=== PATIENT | female | born 1970 | race Hispanic/Latino ===

== ENCOUNTER 2017-08-17 17:44 | Emergency (ER) | payer BC ==
[2017-08-17 18:41] LABS: Bilirubin Negative (Negative); Blood, Urine Large (Negative); Clarity CLOUDY (Clear); Glucose, Urine (Dipstick) Negative (Negative); Leukocyte Negative (Negative); Nitrite Negative (Negative); Protein, Urine (Dipstick) 30 mg/dL (Neg-Trace); Specific Gravity, Urine 1.026 (1.002-1.036)
[2017-08-17 18:43] LABS: Hyaline Casts/LPF 4-6 HYALINE CAST LPF (0-3 Hyaline); Pathc Cast-AUWi Flag 1.21 (0-2.49); WBC/HPF 0-3 HPF (0-3)
[2017-08-17 18:57] LABS: RBC/HPF GREATER THAN 50-TNTC HPF (0-3); Yeast-All Forms None Seen HPF (None Seen)
[2017-08-17 18:58] LABS: Bacteria/HPF Rare-Few HPF (None Seen)
[2017-08-17] MEDS ORDERED: Ketorolac Tromethamine 30 MG/ML VIAL ONE (21:43)
== END 2017-08-17 22:10 | disposition home or self-care (01) ==
LOC: ERS 17:44
DX: R10.32 Left lower quadrant pain (principal); F17.210 Nicotine dependence, cigarettes, uncomplicated
CPT/HCPCS: 81003; 81015; 96372; J1885

== ENCOUNTER 2018-01-14 10:19 | Emergency (ER) | payer BC ==
[2018-01-14 10:47] LABS: #Eosinphils 0.1 thou/uL (0.0-0.7); #Monocytes 0.3 thou/uL (0.11-0.59); #Neutrophils 11.6 thou/uL (1.40-6.50); %Basophils 0.1 % (0.0-1.0); %Eosinophils 0.4 % (0.0-10.0); %Lymphocytes 7.5 % (21.0-51.0); %Monocytes 2.5 % (0.0-10.0); %Neutrophils 89.5 % (42.0-75.0); Hemoglobin 16.7 g/dL (12.0-16.0); Mean Corpuscular HGB CONC 34.2 g/dL (32.0-36.0); Mean Corpuscular Hemoglobin 31.8 pg (27.0-31.0); Mean Corpuscular Volume 93.2 fl (81.0-99.0); Mean Platelet Volume 7.2 fL (7.4-10.4); Platelet Count 313 thou/uL (130-400); RBC Distribution Width 11.7 % (11.5-14.5); Red Blood Cell (RBC) Count 5.24 mill/uL (4.20-5.40)
[2018-01-14 11:08] LABS: ALT (SGPT) 117 U/L (8-55); AST (SGOT) 110 U/L (5-34); Albumin 4.7 g/dL (3.5-5.0); Alkaline Phosphatase 90 U/L (40-150); Anion Gap 16 mmol/L (10-20); BUN (Urea Nitrogen) 12 mg/dL (7.0-18.7); Bilirubin, Total 0.4 mg/dL (0.2-1.2); Calc. Creatinine Clearance 0 mL/min (70-130); Calcium 10.1 mg/dL (7.8-10.44); Carbon Dioxide 16 mmol/L (22-29); Chloride 108 mmol/L (98-107); Estimated GFR-MDRD 77; Globulin 3.8 g/dL (2.4-3.5); Glucose 151 mg/dL (70-105); Lipase 9 U/L (8-78); Protein, Total 8.5 g/dL (6.0-8.3); Sodium 136 mmol/L (136-145)
[2018-01-14] MEDS ORDERED: Ondansetron ODT 4 MG TAB PO SCH (11:45)
[2018-01-14 12:12] LABS: Bilirubin Small (Negative); Blood, Urine Trace (Negative); Clarity CLOUDY (Clear); Glucose, Urine (Dipstick) Negative (Negative); Leukocyte Trace (Negative); Nitrite Negative (Negative); Protein, Urine (Dipstick) 30 mg/dL (Neg-Trace); Specific Gravity, Urine 1.033 (1.002-1.036); Urobilinogen 0.2 mg/dL (0.2-1.0); pH, Urine 5.5 (5.0-9.0)
[2018-01-14 12:13] LABS: Bacteria/HPF 1+ HPF (None Seen); Pathc Cast-AUWi Flag 2.32 (0-2.49)
[2018-01-14 12:13] LABS: HBCM Index 0.09 S/CO (0-0.79); HBSAg Index 0.21 S/CO (0-0.99); Hep A IgM AB Non-Reactive (NonReactive); Hep A IgM S/CO 0.09 S/CO (0-0.79); Hep B Surf Ag Non-Reactive S/CO (NonReactive); Hep C IgG Ab Non-Reactive (NonReactive); Hep C Index 0.06 S/CO (0-0.79); Hepatitis B Core IGM Abs Non-Reactive (NonReactive)
[2018-01-14 12:22] LABS: Hyaline Casts/LPF 0-3 HYALINE CAST LPF (0-3 Hyaline); RBC/HPF 0-3 HPF (0-3)
== END 2018-01-14 13:13 | disposition home or self-care (01) ==
LOC: ERS 10:19
DX: N39.0 Urinary tract infection, site not specified (principal); E86.0 Dehydration; D72.829 Elevated white blood cell count, unspecified; R11.2 Nausea with vomiting, unspecified; F17.210 Nicotine dependence, cigarettes, uncomplicated
CPT/HCPCS: 36415; 80053; 80074; 81003; 81015; 83690; 85025; 87086; 96360; 96361; Q0162

== ENCOUNTER 2018-09-14 18:14 | Emergency (ER) | payer BC ==
[2018-09-14 18:46] LABS: #Basophils 0.1 thou/uL (0.0-0.2); #Eosinphils 0.1 thou/uL (0.0-0.7); #Lymphocytes 3.5 thou/uL (1.20-3.40); #Monocytes 0.5 thou/uL (0.11-0.59); %Basophils 1.3 % (0.0-1.0); %Eosinophils 1.5 % (0.0-10.0); %Lymphocytes 38.2 % (21.0-51.0); %Monocytes 5.5 % (0.0-10.0); %Neutrophils 53.5 % (42.0-75.0); Hemoglobin 13.9 g/dL (12.0-16.0); Mean Corpuscular HGB CONC 33.9 g/dL (32.0-36.0); Mean Corpuscular Hemoglobin 31.7 pg (27.0-31.0); Mean Corpuscular Volume 93.5 fL (78.0-98.0); Platelet Count 302 thou/uL (130-400); RBC Distribution Width 11.6 % (11.5-14.5); Red Blood Cell (RBC) Count 4.39 mill/uL (4.20-5.40); White Blood Cell (WBC) Count 9.3 thou/uL (4.8-10.8)
[2018-09-14 18:54] LABS: BHCG - Serum Negative (NEGATIVE); Pregs Control Background? CLEAR/WHITE (CLR/WHITE); Pregs Control Bar Appear? YES (CONTROL BAR)
[2018-09-14 19:10] LABS: ALT (SGPT) 127 U/L (8-55); AST (SGOT) 80 U/L (5-34); Alkaline Phosphatase 128 U/L (40-150); Anion Gap 13 mmol/L (10-20); BUN (Urea Nitrogen) 8 mg/dL (7.0-18.7); Bilirubin, Total 0.4 mg/dL (0.2-1.2); Calc. Creatinine Clearance 0 mL/min (70-130); Calcium 9.6 mg/dL (7.8-10.44); Carbon Dioxide 25 mmol/L (22-29); Chloride 103 mmol/L (98-107); Estimated GFR-MDRD 90; Globulin 3.3 g/dL (2.4-3.5); Glucose 119 mg/dL (70-105); Lipase 32 U/L (8-78); Potassium 3.5 mmol/L (3.5-5.1); Protein, Total 7.3 g/dL (6.0-8.3); Sodium 137 mmol/L (136-145)
[2018-09-14] MEDS ORDERED: Fentanyl 100 MCG/2 ML VIAL ONE (20:00)
--- NOTE | 2018-09-14 20:50 | ULT ---
RIGHT UPPER QUADRANT ULTRASOUND: Date: 09/14/18 INDICATION: Abdominal pain. FINDINGS: There is diffuse increased echogenicity of the hepatic parenchyma. Moderate distention of the gallbla dder is present and there is evidence of cholelithiasis. There is borderline size gallbladder wall of approximately 3.0 mm. Mayberry's sign is reported as positive by the cottrell blower. IMPRESSION: 1. Cholelithiasis, borderline gallbladder wall thickening, and positive Mayberry's sign. Recommend cli nical correlation for acute cholecystitis. Surgical consultation would prove used. 2. Findings which likely represent hepatic steatosis. Correlate with liver function enzymes. POS: DASIA
== END 2018-09-14 20:49 | disposition home or self-care (01) ==
LOC: ERS 18:14
DX: K80.20 Calculus of gallbladder without cholecystitis without obstruction (principal); Z87.891 Personal history of nicotine dependence
CPT/HCPCS: 36415; 76705; 80053; 83690; 84703; 85025; 93005; 96374; J3010

== ENCOUNTER 2018-09-15 16:00 | Inpatient (IN) | payer BC ==
[2018-10-14 16:14] VITALS: BMI 29.3
--- NOTE | 2018-10-17 02:35 | HP ---
PREOPERATIVE DIAGNOSES: Dysmenorrhea, abnormal uterine bleeding, history of endometrial ablation, failed medical management. PROCEDURE TO BE PERFORMED: Robotic assisted total laparoscopic hysterectomy with bilateral salpingectomy. HISTORY OF PRESENT ILLNESS: Ms. Christy Marsh is a 48-year-old, G5, P4-0-1-4 with a long history of dysmenorrhea and menorrhagia. She has been the patient of [facility] since 2012 and has been under multiple providers care with long history of menorrhagia and dysmenorrhea that was years ago, controlled with endometrial ablation. However, the past few years, she complains of irregular bleeding and return of her pelvic pain and dysmenorrhea. For a number of years, the patient has tried various medical therapy including oral contraceptives and prescriptive NSAIDs for her complaints and she now requests definitive surgical management with hysterectomy and bilateral salpingectomy. PAST MEDICAL HISTORY: Anxiety, anemia, headaches, and hyperlipidemia. PAST SURGICAL HISTORY: delivery x1, tubal ligation, endometrial ablation, and orthopedic surgery. SOCIAL HISTORY: The patient is a former smoker. She stopped smoking approximately 1 year ago. She is . Denies alcohol or substance abuse. FAMILY HISTORY: Significant for breast cancer in a paternal aunt. Diabetes in her mother and hyperlipidemia in her mother. PAST OBSTETRICAL HISTORY: Five pregnancies, one miscarriage, three vaginal deliveries, and one section. GYNECOLOGIC HISTORY: Significant for NILM Pap smear in August 2018. Remote history of abnormal Pap smear. No history of STD or PID. Contraceptive method is tubal ligation. No history of endometriosis, infertility, or ovarian cyst. Does have a history of one small uterine fibroid noted on ultrasound. CURRENT MEDICATIONS: 1. Ibuprofen as needed for pain. 2. Norethindrone/estradiol. 3. Nexium. 4. Paroxetine 10 mg. 5. Simvastatin 10 mg. 6. Zolpidem 5 mg. ALLERGIES: NO KNOWN DRUG ALLERGIES. PHYSICAL EXAMINATION: VITAL SIGNS: Height 5 feet 6 inches, weight 171, BMI 27.6, blood pressure 100/ 80, pulse 73, respirations 18, O2 saturation 98%. GENERAL: No acute distress. Alert and oriented. HEENT: Grossly normal. CARDIOVASCULAR: Regular rate and rhythm. LUNGS: Clear to auscultation bilaterally and nonlabored breathing. ABDOMEN: Soft. No hepatosplenomegaly. No distention. No tenderness. : Normal external female genitalia. Normal vaginal mucosa. Normal-appearing cervix. Normal uterus and adnexa on bimanual exam. PSYCHIATRIC: Appropriate affect and mood. ASSESSMENT AND PLAN: Ms. Christy Marsh is a 48-year-old, G5, P4-0-1-4 with history of failed medical management and surgical management with endometrial ablation, now requesting robotic-assisted total laparoscopic hysterectomy with bilateral salpingectomy. The use of postoperative pain medications as well as possible placement of On-Q pump if desired at the time of surgery has been discussed with the patient. She understands postoperative expectations and limitations, as well as recommended restriction. The patient understands the risks to include, but not limited to, bleeding, infection, damage to intraabdominal pelvic organs, inability to fully diagnose and treat all conditions at the time of surgery and possible need for future medical and/or surgical management. The patient's questions have been answered to her satisfaction and she desires to proceed with the procedure as listed above. Job ID: [id number] MTDD
[2018-10-17] MEDS ORDERED: CeleCOXIB 100 MG CAP ONE (06:34)
[2018-10-17] MEDS ORDERED: Famotidine/PF 20 mg/2ml Vial ONE ×2 (06:34→06:35)
[2018-10-17] MEDS ORDERED: Bupivacaine HCl 0.5%/Epinephrine 1:200,000/PF 30 ml Vial ONE (06:34)
[2018-10-17] MEDS ORDERED: Gabapentin 300 MG CAP ONE (06:34)
[2018-10-17] MEDS ORDERED: Fentanyl 100 MCG/2 ML VIAL ONE ×2 (06:59→10:59)
[2018-10-17] MEDS ORDERED: HYDROmorphone 2 MG/ML VIAL ONE (06:59)
[2018-10-17] MEDS ORDERED: Midazolam HCl 2 mg/2 ml Vial ONE (06:59)
[2018-10-17] MEDS ORDERED: Promethazine HCl 25 MG/ML VIAL SLOW IVP PRN (09:26)
[2018-10-17] MEDS ORDERED: Promethazine HCl 25 MG/ML VIAL IM PRN (09:26)
[2018-10-17] MEDS ORDERED: HYDROmorphone 2 MG/ML VIAL SLOW IVP PRN (09:26)
[2018-10-17] MEDS ORDERED: Ondansetron HCl/PF 4 MG/2 ML Vial IVP PRN (09:26)
[2018-10-17] MEDS ORDERED: PACU-Morphine 4MG/ML VIAL SLOW IVP PRN (09:26)
[2018-10-17] MEDS ORDERED: Iothalamate Meglumine 60% 50 ML VIAL FS ONE (09:40)
--- NOTE | 2018-10-17 10:56 | OP ---
DATE OF PROCEDURE: 10/17/2018 PREOPERATIVE DIAGNOSES: 1. Irregular uterine bleeding, dysmenorrhea, history of endometrial ablation. 2. Failed medical management. POSTOPERATIVE DIAGNOSES: 1. Irregular uterine bleeding, dysmenorrhea, history of endometrial ablation. 2. Failed medical management. PROCEDURES PERFORMED: Robotic assisted total laparoscopic hysterectomy with bilateral salpingectomy and lysis of adhesions. ASSISTANTS: Julia Sanz DO and Nemo Dodge PA-C. ANESTHESIA: GETA. COMPLICATIONS: None. ESTIMATED BLOOD LOSS: For hysterectomy less than 50 mL. Co-procedure with Dr. Caro for laparoscopic cholecystectomy following hysterectomy. OPERATIVE FINDINGS: 1. Normal-appearing uterus, tubes, and ovaries bilaterally. Omental adhesions to the anterior abdominal wall. Dense adhesions of the bladder to the anterior aspect of the uterus. 2. Vaginal cuff hemostatic. DESCRIPTION OF PROCEDURE: The patient was taken back to the OR with IV fluids running. Once she was in the OR, she was placed in dorsal supine position and general anesthesia was obtained. Once the patient was asleep, she was placed in low dorsal lithotomy position and the abdomen and vagina were prepped and draped in normal fashion for gynecological laparoscopy. A Scott catheter was placed into the bladder and drained approximately 100 mL of urine. An operative speculum was placed in the vagina and the anterior lip of the cervix was easily visualized and grasped with a single-tooth tenaculum. The uterus sounded approximately 6 cm. SIENNA Phuc-manipulator was assembled with a 6 cm tip and a 4 cm colpotomy cup. SIENNA Phuc-manipulator was then placed into the uterus and vagina in normal fashion with the intrauterine balloon and intravaginal balloon inflated. The operative speculum and the single-tooth tenaculum were removed and surgeon's gloves were changed. A Kelsy syringe was attached to the tip of the Scott catheter and attention was turned to the laparoscopic portion of the case. Approximately 1 cm above the umbilicus, local anesthesia was placed underneath the skin. A 12 mm skin incision was made with a scalpel. The Veress needle was placed through this skin incision with the abdomen insufflated without difficulty. After the abdomen was insufflated, the Veress needle was removed and a 12 mm trocar was placed through this incision. The laparoscope was then placed through this trocar with the above findings noted. The patient was placed in Trendelenburg position. The left lower quadrant 8 mm robotic trocar was placed under direct visualization without difficulty. In similar fashion, the right lower quadrant 8-mm port and right upper quadrant 11-mm port were placed. After all four ports were placed, robotic arms were docked and the robotic instruments were directed into the operative field under direct visualization. The surgeon then moved to the console to begin the operative portion of the procedure. Beginning on the patient's left side, the left fallopian tube was grasped, elevated away from the left pelvic sidewall. Bipolar cautery was used and the fallopian tube segment was transected. The left fallopian tube was noted to have a Falope ring , which was removed from the operative field. After the fallopian tube segment was removed, the utero-ovarian ligament was cauterized and incised allowing the left ovary to fall away to the left pelvic sidewall. The round ligament on the patient's left side was then cauterized, incised, and divided into anterior and posterior leaf. Of note, prior to starting the hysterectomy portion of the procedure, filmy adhesions of the omentum were noted to the anterior abdominal wall were taken down with gentle blunt dissection as well as monopolar cautery to allow for mormonism of anatomy and visualization of the pelvic structures. Dense adhesions of the bladder were noted to the anterior aspect of the uterus during dissection of the left round ligament and attention was then turned to the contralateral side. The right fallopian tube was then grasped and elevated. It was transected using bipolar cautery in similar fashion. The right fallopian tube segment and right Falope ring were removed from the operative field. The utero-ovarian ligament on the patient's right side was cauterized, incised, and the right ovary fell away to the pelvic sidewall. The round ligament on the patient's right side was cauterized, divided, and dissected down toward the level of the uterine artery. The anterior aspect of the ligament and the bladder was noted to be densely adhered anterior to the anterior aspect of the uterus. The bladder was backfilled to delineate the bladder anatomy from the uterus by carefully dissecting layers of adhesive tissue moving laterally to medially. The bladder was dissected away from the anterior aspect of the uterus. After the bladder was freed from the anterior aspect of the uterus , it was backfilled again with full distention and no evidence of bladder injury. The vesicouterine tissue was then taken down in the layers of the bladder intentionally, distended to help identify the anatomy. Once the bladder was completely dissected away from the anterior aspect of the uterus, the uterine arteries were skeletonized, cauterized, and transected. After the blood supply had been controlled bilaterally, attention was turned to the colpotomy portion of the procedure. Using monopolar scissors, the colpotomy was completed circumferentially over the SIENNA Phuc-manipulator cup. After the colpotomy was completed, the uterus and cervix were retracted into the vagina and remained there for the remainder of the case for pneumoperitoneum. The vaginal cuff was copiously irrigated and any small areas of bleeding were controlled with bipolar cautery. The bladder was again backfilled and noted to be well away from the planned vaginal cuff closure. The vaginal cuff was then closed with Stratafix suture in a running fashion in 2 layers. After the vaginal cuff was closed, it was copiously irrigated and suctioned dry. A small area of bleeding was noted near the right ovary and fallopian tube dissection. This was controlled with bipolar cautery. The pressure was dropped to approximately 6 to 8 mmHg with no evidence of bleeding. The uterine specimen was removed from the vagina, and the vagina was inspected with a sponge stick and noted to be hemostatic. In this portion of the case, the robotic arms were undocked from the ports and the robotic arms removed away from the patient's bedside. Dr. Caro then presented for his portion of the case to complete the laparoscopic cholecystectomy. Job ID: [id number] [facility]
--- NOTE | 2018-10-17 11:03 | RAD ---
INTRAOPERATIVE CHOLANGIOGRAM: Date: 10/17/18 PROVIDED CLINICAL HISTORY: Cholecystectomy. FINDINGS: Spot fluoroscopic images of the right upper quadrant demonstrate opacification of the extrahepatic bi liary system, demonstrating no evidence for filling defect. Contrast material is seen within the duod enum. IMPRESSION: As above. POS: TPC
[2018-10-17] MEDS ORDERED: diphenhydrAMINE 25 MG CAP PO PRN (13:06)
[2018-10-17] MEDS ORDERED: Zolpidem Tartrate 5 MG TAB PO PRN (13:06)
[2018-10-17] MEDS ORDERED: Ondansetron PF 4 MG/2 ML Vial IVP PRN (13:06)
[2018-10-17] MEDS ORDERED: Bisacodyl 10 MG SUPP PR PRN (13:06)
[2018-10-17] MEDS ORDERED: Simethicone Chewable 80 MG TAB PO PRN (13:06)
[2018-10-17] MEDS ORDERED: HYDROcodone/Acetaminophen 5/325 mg Tablet PO PRN ×2 (13:06)
[2018-10-17] MEDS ORDERED: Ketorolac Tromethamine 30 MG/ML VIAL IVP SCH ×2 (13:15→18:00)
[2018-10-17] MEDS: Morphine 4 MG/ML VIAL SLOW IVP PRN ×2 (13:46→19:07)
[2018-10-17] MEDS: Sodium Chloride 0.9% 1,000 ML IV SCH ×2 (13:47→20:47)
[2018-10-17] MEDS: Lactated Ringer's 1,000 ML IV SCH (14:50)
[2018-10-17] MEDS ORDERED: Rocuronium Bromide 10 MG/ML (10ML VIAL) ONE (15:22)
[2018-10-17] MEDS ORDERED: Ketorolac Tromethamine 30 MG/ML VIAL ONE (15:22)
[2018-10-17] MEDS ORDERED: Dexamethasone 20 MG/5 ML VIAL ONE (15:22)
[2018-10-17] MEDS ORDERED: Lidocaine 1% PF 5 ML VIAL ONE (15:22)
[2018-10-17] MEDS ORDERED: Ondansetron PF 4 MG/2 ML Vial ONE (15:22)
[2018-10-17] MEDS ORDERED: PROPOFOL 200 MG/20 ML VIAL ONE (15:22)
[2018-10-17] MEDS: Ketorolac Tromethamine 30 MG/ML VIAL IVP SCH (20:43)
[2018-10-17] MEDS ORDERED: NORETH PO SCH (21:00)
[2018-10-17] MEDS ORDERED: ETHIN PO SCH (21:00)
[2018-10-17] MEDS ORDERED: PARoxetine 20 MG TAB PO SCH (21:00)
[2018-10-18] MEDS: Lactated Ringer's 1,000 ML IV SCH ×3 (00:18→08:52)
[2018-10-18] MEDS: Ketorolac Tromethamine 30 MG/ML VIAL IVP SCH ×3 (03:47→11:54)
[2018-10-18] MEDS: Sodium Chloride 0.9% 1,000 ML IV SCH ×2 (06:07→08:52)
--- NOTE | 2018-10-18 07:09 | OP ---
DATE OF PROCEDURE: 10/17/2018 PREOPERATIVE DIAGNOSIS: Symptomatic gallstones. POSTOPERATIVE DIAGNOSIS: Symptomatic gallstones. PROCEDURE PERFORMED: Laparoscopic cholecystectomy with intraoperative cholangiogram. ANESTHESIA: General. ESTIMATED BLOOD LOSS: Minimal. COMPLICATIONS: None. SPECIMENS: Gallbladder. FINDINGS: Normal cholangiogram. DESCRIPTION OF PROCEDURE: The patient was taken to the operating room and laid supine on the operating room table. After general anesthetic was obtained, Dr. Chowdhury performed her robot laparoscopic procedure. I then scrubbed into the case and used her supraumbilical 12-mm port and right upper quadrant 11-mm port and right upper quadrant robot assist port. I added an additional 5-mm port at the xiphoid. The gallbladder was retracted from the gallbladder fossa. The peritoneum was opened anteriorly and posteriorly. The critical view triangle was seen showing only the cystic duct and cystic artery branching medial to lateral. There were no other branching structures. A clip was placed on the cystic duct. A small ductotomy was made just proximal to that. A cholangiocatheter was brought in through a separate stab incision, placed in the cystic duct and a cholangiogram was performed, which shows good contrast flow into the duodenum without obstruction. There was good filling of the right and left hepatic duct system. Cholangiocatheter was removed and 2 clips were placed proximally on the cystic duct. It was cut using laparoscopic scissors. Cystic artery was taken using 2 clips proximally and 1 clip distally cut using laparoscopic scissors. Cautery was used to dissect the gallbladder out of the gallbladder fossa. Gallbladder was placed in an Endo Catch bag and brought out through the Marianne. The right upper quadrant was irrigated. Meticulous hemostasis was obtained in the liver bed using cautery. All port sites were infiltrated using local anesthetic. All ports were removed under direct visualization without bleeding. The 12-mm camera port at the umbilicus had been closed using GraNee needle and Vicryl tie. All ports were removed. The Vicryl tie was close down. All incisions were irrigated and closed using 4-0 Monocryl and Dermabond. The patient was then sent to Recovery in stable condition. All instruments counts, needle counts, and lap counts were correct. Job ID: [id number]
--- NOTE | 2018-10-18 08:21 | PDOC.EVN ---
Event Note - Event Note Event Note: POD1 S: no N/V, no fever, tolerating diet, voiding, passing flatus O: Vital Signs (12 hours) Temp Pulse Resp BP Pulse Ox 10/18/18 08:06 98.0 F 86 20 128/66 98 10/18/18 03:50 98.4 F 91 16 117/68 95 10/18/18 00:26 98.5 F 75 18 132/66 97 Weight Weight 171 lb Intake & Output 10/16/18 10/17/18 10/18/18 10/19/18 06:59 06:59 06:59 06:59 Intake Total 1168 Output Total 2400 Balance -1232 Gen: NAD, A and O Chest: nonlabored breathing Abd: port sites CDI x 4, nondistended, NTTP Ext: no edema A/P: POD1, doing well sp RATLHBS and cholecystectomy. DC today.
[2018-10-18 11:55] VITALS: BP 117/73; TEMP 98.4
[2018-10-22] MEDS ORDERED: Ibuprofen 800 MG TAB PO SCH (22:00)
== END 2018-10-18 13:20 | disposition home or self-care (01) | DRG 743 ==
LOC: SURG A 10-17 05:45 → 3SW 10-17 12:08 → 3SE 10-17 12:28
PROVIDERS: ADMIT Obstetrics & Gynecology; ATTEND Obstetrics & Gynecology
PROC: 0UT94ZZ Resection of Uterus, Percutaneous Endoscopic Approach (ICD-10-PCS; principal; 2018-10-17)
PROC: 0UT74ZZ Resection of Bilateral Fallopian Tubes, Percutaneous Endoscopic Approach (ICD-10-PCS; 2018-10-17)
PROC: 0FT44ZZ Resection of Gallbladder, Percutaneous Endoscopic Approach (ICD-10-PCS; 2018-10-17)
PROC: 8E0W4CZ Robotic Assisted Procedure of Trunk Region, Percutaneous Endoscopic Approach (ICD-10-PCS; 2018-10-17)
PROC: BF10YZZ Fluoroscopy of Bile Ducts using Other Contrast (ICD-10-PCS; 2018-10-17)
DX: N94.6 Dysmenorrhea, unspecified (principal); N93.9 Abnormal uterine and vaginal bleeding, unspecified; N92.0 Excessive and frequent menstruation with regular cycle; F41.9 Anxiety disorder, unspecified; K80.80 Other cholelithiasis without obstruction; D64.9 Anemia, unspecified; E78.5 Hyperlipidemia, unspecified; Z98.890 Other specified postprocedural states; Z98.51 Tubal ligation status; Z87.891 Personal history of nicotine dependence
CPT/HCPCS: 36415; 47532; 80048; 80076; 84703; 85025; 86850; 86900; 86901; 88304; 88307; J0670; J1100; J1170; J1885; J2001; J2250; J2270; J2405; J2704; J3010; Q9961; S0028

== ENCOUNTER 2018-10-14 00:44 | Outpatient (CLI) | payer BC ==
[2018-10-14 16:55] LABS: #Basophils 0.1 thou/uL (0.0-0.2); #Eosinphils 0.1 thou/uL (0.0-0.7); #Lymphocytes 3.2 thou/uL (1.20-3.40); #Monocytes 0.5 thou/uL (0.11-0.59); %Basophils 1.2 % (0.0-1.0); %Eosinophils 0.9 % (0.0-10.0); %Lymphocytes 36.2 % (21.0-51.0); %Monocytes 5.2 % (0.0-10.0); %Neutrophils 56.4 % (42.0-75.0); Hemoglobin 13.9 g/dL (12.0-16.0); Mean Corpuscular Hemoglobin 30.5 pg (27.0-31.0); Mean Corpuscular Volume 92.6 fL (78.0-98.0); Mean Platelet Volume 8.2 fL (7.4-10.4); Platelet Count 326 thou/uL (130-400); RBC Distribution Width 11.6 % (11.5-14.5); Red Blood Cell (RBC) Count 4.56 mill/uL (4.20-5.40); White Blood Cell (WBC) Count 8.9 thou/uL (4.8-10.8)
[2018-10-14 16:57] LABS: BHCG - Serum Negative (NEGATIVE); Pregs Control Background? CLEAR/WHITE (CLR/WHITE); Pregs Control Bar Appear? YES (CONTROL BAR)
[2018-10-14 17:24] LABS: ALT (SGPT) 165 U/L (8-55); AST (SGOT) 123 U/L (5-34); Albumin 4.2 g/dL (3.5-5.0); Alkaline Phosphatase 123 U/L (40-150); Anion Gap 11 mmol/L (10-20); BUN (Urea Nitrogen) 9 mg/dL (7.0-18.7); Bilirubin, Direct 0.2 mg/dL (0.1-0.3); Bilirubin, Total 0.4 mg/dL (0.2-1.2); Calc. Creatinine Clearance 0 mL/min (70-130); Calcium 9.6 mg/dL (7.8-10.44); Carbon Dioxide 25 mmol/L (22-29); Chloride 106 mmol/L (98-107); Estimated GFR-MDRD 88; Glucose 82 mg/dL (70-105); Potassium 3.6 mmol/L (3.5-5.1); Protein, Total 7.7 g/dL (6.0-8.3); Sodium 138 mmol/L (136-145)
== END 2018-10-14 00:45 | disposition home or self-care (01) ==
LOC: LABBT 00:44
PROVIDERS: ATTEND Obstetrics & Gynecology
DX: Z01.812 Encounter for preprocedural laboratory examination (principal); K80.20 Calculus of gallbladder without cholecystitis without obstruction
CPT/HCPCS: 80048; 80076; 84703; 85025; 86850; 86900; 86901

== ENCOUNTER 2018-12-21 10:31 | Emergency (ER) | payer BC ==
[2018-12-21] MEDS ORDERED: diphenhydrAMINE 50 MG CAP ONE (10:36)
[2018-12-21] MEDS ORDERED: Famotidine 20 MG TAB ONE (12:08)
[2018-12-21] MEDS ORDERED: predniSONE 20 MG TAB ONE (12:08)
== END 2018-12-21 14:10 | disposition home or self-care (01) ==
LOC: ERS 10:31
DX: T78.40XA Allergy, unspecified, initial encounter (principal)
CPT/HCPCS: 99282; J7512; Q0153

== ENCOUNTER 2020-09-13 18:54 | Emergency (ER) | payer BC ==
[2020-09-13] MEDS ORDERED: predniSONE 20 MG TAB ONE (19:14)
== END 2020-09-13 20:12 | disposition home or self-care (01) ==
LOC: ERS 18:54
DX: U07.1 COVID-19 (principal)
CPT/HCPCS: 71045; 93005; J7512